=== PATIENT | male | born 2000 ===

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

== ENCOUNTER 2021-11-21 00:09 | Emergency (ER) | payer MEDICAID | END 2021-11-21 00:37 | disposition home or self-care (01) | LOC: FB.ED 00:09 | DX: T25.222A Burn of second degree of left foot, initial encounter (principal) | CPT/HCPCS: 10021; 99283 ==